=== PATIENT | female | born 1995 | race Two or more races ===

== ENCOUNTER 2020-11-18 08:35 | Emergency (ER) | payer SELFPAY ==
[~2020-11-18] VITALS: Ht 162.6 cm; Wt 112.6 kg
--- NOTE | 2020-11-18 08:56 | NUR ---
FIRST CONTACT:DIFFICULTY BREATHING, COUGH, FEVER VACC. FOR COVID-19 IN JUNE PT TO BED WITH STEADY GAIT. TO BEDSIDE FOR EVALUATION. PT ATTACHED TO MONITORS. VSS. ARAGON.
[2020-11-18] MEDS ORDERED: KETOROLAC 30 MG/1 ML IM ONE (09:00)
[2020-11-18 09:36] LABS: BASOPHILS % (AUTO) 1 % (0-1); EOSINOPHILS % (AUTO) 9 % (1-7); LYMPHOCYTES % (AUTO) 32 % (22-44); MEAN CORPUSCULAR HEMOGLOBIN 25.6 pg (27.0-34.8); MEAN CORPUSCULAR HGB CONC 32.9 g/dL (32.4-35.8); MEAN PLATELET VOLUME 8.8 fL (7.4-10.4); MONOCYTES % (AUTO) 6 % (2-9); NEUTROPHILS % (AUTO) 53 % (42-75); PLATELET COUNT 311 x10^3/uL (130-400); RED CELL DISTRIBUTION WIDTH 16.6 % (9.6-15.2)
[2020-11-18 09:38] LABS: ALBUMIN 3.4 g/dL (3.4-5.0); ANION GAP 5 mmol/L (5-15); CALCIUM 8.6 mg/dL (8.5-10.1); CHLORIDE 109 mmol/L (98-107)
[2020-11-18 09:41] LABS: ALANINE AMINOTRANSFERASE 49 U/L (12-78); ALKALINE PHOSPHATASE 99 U/L (45-117); BILIRUBIN,TOTAL 0.8 mg/dL (0.2-1.0); C-REACTIVE PROTEIN, QUANT 0.39 mg/dL (0.02-0.49); CREATININE 0.56 mg/dL (0.55-1.02)
[2020-11-18] MEDS ORDERED: KETOROLAC 60 MG/2 ML ONE (09:53)
[2020-11-18 09:58] VITALS: BP 110/89
--- NOTE | 2020-11-18 10:42 | NUR ---
Patient given discharge instructions and they have confirmed that they understand the instructions. Patient ambulatory with steady gait. NAD, all questions answered appropriately, denies additional needs at this time. No personal belongings left in room after discharge.
== END 2020-11-18 10:44 | disposition home or self-care (01) ==
LOC: ED 09:42
DX: B34.9 Viral infection, unspecified (principal); Z20.822 Contact with and (suspected) exposure to COVID-19; R50.9 Fever, unspecified; R94.31 Abnormal electrocardiogram [ECG] [EKG]; F17.200 Nicotine dependence, unspecified, uncomplicated
CPT/HCPCS: 71045; 80053; 84145; 85025; 85379; 86140; 93005; 96372; 99285; J1885; U0003; U0005